=== PATIENT | female | born 1985 | race Caucasian/White ===

== ENCOUNTER 2016-11-19 21:41 | Inpatient (IN) | payer BC, OTHER ==
[~2016-11-19] VITALS: Ht 182.9 cm; Wt 72.6 kg
[~2016-11-19 21:41] MED LIST: OMEP20TA20 PO
[2016-11-19 22:30] VITALS: BP 130/83
--- NOTE | 2016-11-19 22:30 | NUR ---
Pre-assessment note: Pt is 30F seen in the intake office. Pt is alert and oriented with no s/s of acute distress noted. Pt reported feeling anxiety at this time. Explained to pt the policies and procedures of the unit. Pt verbalized understanding. Pt stated that she is here to be treated for ETOH dependence. BP 130/83, HR: 121, T: 98.0, RR:20, SpO2: 96%. Pt reports NKA. Pt reports weight of 160lbs and Height of 6'00". Pt is able to ambulate to unit with steady gait. Will admit to [facility] floor.
--- NOTE | 2016-11-19 22:38 | NUR ---
Admission note: Pt is a 30 year old female, AOx4 with no s/s of acute distress noted. Pt denies any pain/discomfort at this time. Respirations even and unlabored. Heart rate regular. Bowel sounds active x4 quadrants. Skin intact. Pt reported NKDA and NKFA. Pt following regular diet at home. Pt was previously in [facility] on May 2016. Pt brought no home medications. Pt reported hx of Anxiety, Depression, and Acute Pancreatitis. Pt has no hx of sz. Pt refused flu and pna vaccines. Pt refused to be tested for HIV. Pt denies having a PCP. Pt admitted for ETOH dependence: Pt drinks 2-3 bottles of wine daily for the past 6 months. Pt started drinking at 16 years old. Pt last drank on 11/19/16 at 1700. Pt will be under the care of Dr. Zachariah Morel. Pt reported no s/s of severe withdrawals except for slight anxiety. Initial CIWA assessment was 6. Pt verbalized she is in treatment because she doesn't want to be physically dependent on alcohol. Educated pt about current plan of care and verbalized support. Encouraged pt to verbalize feelings. Pt denies any suicidal ideation at this time. Pt denies hx of smoking cigarettes. Bed in lowest position. Side rails up x2. Bed padded for safety. All needs attended and met. Call light functioning and within reach. Will continue to monitor.
[2016-11-19 22:47] LABS: *URINE HCG, QUAL NEGATIVE (NEGATIVE)
[2016-11-19 22:56] LABS: *AMPHETAMINE, URINE NEGATIVE (NEGATIVE); *BARBITURATE, URINE NEGATIVE (NEGATIVE); *CANNABINOID, URINE NEGATIVE (NEGATIVE); *COCCAINE, URINE NEGATIVE (NEGATIVE); *OPIATE, URINE NEGATIVE (NEGATIVE); *PHENCYCLIDINE SCREEN,URINE NEGATIVE (NEGATIVE)
[2016-11-19] MEDS ORDERED: THIAMINE HCL 200 MG/2 ML VIAL IM ONE (23:15)
[2016-11-19] MEDS ORDERED: HYDROXYZINE PAMOATE 25 MG CAPSULE PO PRN (23:15)
[2016-11-19] MEDS ORDERED: DICYCLOMINE HCL 20 MG TABLET PO PRN (23:15)
[2016-11-19] MEDS ORDERED: LORAZEPAM 1 MG TABLET PO PRN (23:15)
[2016-11-19] MEDS ORDERED: ACETAMINOPHEN 325 MG TABLET PO PRN (23:15)
[2016-11-19] MEDS ORDERED: ONDANSETRON ODT 4 MG TAB.RAPDIS SL PRN (23:15)
[2016-11-19] MEDS ORDERED: MIRALAX 17 GM POWD.PACK PO PRN (23:15)
[2016-11-19] MEDS ORDERED: MAG HYDROX/AL HYDROX/SIMETH 30 ML LIQUID UDC PO PRN (23:15)
[2016-11-19] MEDS ORDERED: CLONIDINE HCL 0.1 MG TABLET PO PRN (23:15)
[2016-11-19] MEDS ORDERED: IBUPROFEN 400 MG TABLET PO PRN (23:15)
[2016-11-19] MEDS ORDERED: LORAZEPAM 2 MG/1 ML VIAL IM PRN (23:15)
[2016-11-19] MEDS ORDERED: MAGNESIUM HYDROXIDE 30 ML LIQUID UDC PO PRN (23:15)
[2016-11-19] MEDS ORDERED: ONDANSETRON 4 MG/2 ML VIAL IM PRN (23:15)
[2016-11-19] MEDS ORDERED: LOPERAMIDE HCL 2 MG CAPSULE PO PRN ×2 (23:15)
[2016-11-19] MEDS ORDERED: HYDROXYZINE PAMOATE 25 MG CAPSULE ONE (23:33)
[2016-11-19] MEDS ORDERED: LORAZEPAM 1 MG TABLET ONE (23:33)
[2016-11-19] MEDS: LORAZEPAM 1 MG TABLET PO PRN (23:40)
--- NOTE | 2016-11-19 23:40 | NUR ---
Ativan and Vistaril PRN: CIWA noted at 6. Pt c/o of withdrawal symptoms. 1mg Ativan PRN given as ordered. Pt also c/o of anxiety. Vistaril PRN given as ordered. Will continue to monitor.
[2016-11-20] VITALS: BP 124/81
[2016-11-20 00:20] LABS: BASOPHILS % (AUTO) 1.2 % (0.0-2.0); EOSINOPHILS # (AUTO) 0.2 K/uL (0.0-0.7); EOSINOPHILS % (AUTO) 4.8 % (0.0-7.0); HEMATOCRIT 39.1 % (37-47); HEMOGLOBIN 13.2 G/DL (12.0-16.0); LYMPHOCYTES # (AUTO) 2.1 K/UL (0.8-4.8); LYMPHOCYTES % (AUTO) 59.2 % (20.5-51.5); MEAN CORPUSCULAR HEMOGLOBIN 29.6 UUG (27.0-31.0); MEAN CORPUSCULAR HGB CONC 34 g/dL (32.0-37.0); MEAN CORPUSCULAR VOLUME 87.8 FL (81.0-99.0); MONOCYTES # (AUTO) 0.2 K/UL (0.1-1.30); MONOCYTES % (AUTO) 7.3 % (0.0-11.0); NEUTROPHILS # (AUTO) 0.9 K/UL (1.8-8.9); NEUTROPHILS % (AUTO) 27.5 % (38.5-71.5); PLATELET COUNT (AUTO) 199 K/UL (150-450); RED BLOOD CELL COUNT(AUTO) 4.45 MIL/UL (4.2-5.4); WHITE BLOOD COUNT (AUTO) 3.4 K/UL (4.0-11.2)
--- NOTE | 2016-11-20 00:30 | NUR ---
Ativan and Vistaril reassessment: Pt asleep. No acute distress noted. Ativan and Vistaril effective.
[2016-11-20 00:34] LABS: BILIRUBIN,TOTAL 0.4 mg/dL (0.2-1.0); CREATININE 0.9 mg/dL (0.6-1.3); POTASSIUM 3.9 mmol/L (3.5-5.1); TOTAL PROTEIN, SERUM 7.7 g/dL (6.4-8.2)
[2016-11-20 00:58] LABS: THYROID STIMULATING HORMONE 2.046 mIU/mL (0.358-3.740)
[2016-11-20 04:00] VITALS: BP 107/57
--- NOTE | 2016-11-20 07:20 | NUR ---
End of Shift Notes: Pt is 30F, admitted for ETOH dependence on 11/20/16. Pt is full code, on regular diet, and on fall/seizure precautions. Pt noted with NKA. Pt is currently on PRN Ativan for withdrawal symptoms. Pt slept for 6 hours. Respirations even and unlabored. Pt's last CIWA was 2. No N/V noted during the shift. Fall and Sz precautions observed. Bed in lowest position. Side rails up x2. Call light functioning and within reach. All needs attended and met. Will endorse to day shift nurse.
--- NOTE | 2016-11-20 07:49 | NUR ---
START OF SHIFT NOTE Received patient this morning Aox4. Patient states she does not feel good, she states she is "shakey and sweaty." No taper ordered yet. Last CIWA 2 per night nurse. PRN Ativan and Vistaril given per hourly shift and patient slept 6 hours. Encouraged patient to increase fluid intake. Encouraged patient to rest during shift and notify RN if S/S of W/D worsen.. Will provide safe and supportive environment. Will monitor closely and offer help as needed. All needs currently met.
[2016-11-20 08:00] VITALS: BP 109/69
[2016-11-20] MEDS: MULTIVITAMINS,THERAPEUTIC TABLET PO SCH (08:38)
[2016-11-20] MEDS: THIAMINE HCL 100 MG TABLET PO SCH (08:38)
[2016-11-20] MEDS: LORAZEPAM 1 MG TABLET PO PRN (08:39)
[2016-11-20] MEDS: FOLIC ACID 1 MG TABLET PO SCH (08:39)
--- NOTE | 2016-11-20 08:40 | NUR ---
PRN MEDICATION 1 MG ATIVAN GIVEN FOR CIWA 9. CLONIDINE GIVEN FOR C/O ANXIETY AND SWEATS. WILL REASSESS.
[2016-11-20] MEDS ORDERED: TUBERCULIN,PURIF.PROT.DERIV. 5 TU/0.1 ML TEST ID ONE (09:00)
--- NOTE | 2016-11-20 09:25 | NUR ---
PRN REASSESSMENT CIWA DECREASED TO 5. PATIENT REPORTS DECREASE IN ANXIETY. WILL MONITOR
[2016-11-20 12:00] VITALS: BP 110/70
[2016-11-20] MEDS: LORAZEPAM 1 MG TABLET PO SCH ×3 (12:09→21:04)
[2016-11-20 16:00] VITALS: BP 109/72
--- NOTE | 2016-11-20 18:29 | NUR ---
END OF SHIFT NOTE Patient started on 5 day Ativan taper during shift and tolerating well. PRN Ativan and Clonidine given this morning with effectiveness. Last CIWA 6. Patient did not attend groups or activities. She isolated self in room most of shift and slept. Patient had uneventful shift. TB test administered. Vital signs stable. All needs have been met. Safety measures in place. Will endorse to night nurse
--- NOTE | 2016-11-20 19:30 | NUR ---
START OF SHIFT Pt is 30 y/o female , admitted for ETOH dependence . Pt is full code, on regular diet, and on fall/seizure precautions. Pt noted with NKA.Pt started on 5 day Ativan taper for withdrawal symptoms,tolerating well. Respirations even and unlabored. Pt's last CIWA was 6.Placed on Fall and Sz precautions.Received in stable condition. All needs have been met. All safety measures in place per hospital policy. Bed locked and in lowest position, side rails up x2 and padded, call light within reach. Will continue to monitor. .
[2016-11-20 20:00] VITALS: BP 102/70
[2016-11-20] MEDS: FAMOTIDINE 20 MG TABLET PO SCH (21:04)
[2016-11-20] MEDS: GABAPENTIN 300 MG CAPSULE PO SCH (21:04)
[2016-11-20] MEDS ORDERED: GABAPENTIN 300 MG CAPSULE ONE (21:14)
[2016-11-20] MEDS ORDERED: FAMOTIDINE 20 MG TABLET ONE (21:15)
[2016-11-21] VITALS: BP 127/81
[2016-11-21 04:00] VITALS: BP 105/70
[2016-11-21] MEDS: PANTOPRAZOLE SODIUM 40 MG TABLET.DR PO SCH (06:22)
--- NOTE | 2016-11-21 06:49 | NUR ---
END OF SHIFT Pt is 30 y/o female , admitted for ETOH dependence . Pt is full code, on regular diet, and on fall/seizure precautions. Pt noted with NKA.Pt started on 5 day Ativan taper for withdrawal symptoms,tolerating well. Respirations even and unlabored. Pt's last CIWA was 2.Placed on Fall and Sz precautions.No PRN meds given ,no c/o pain noted.Pt slept 10 hrs,fluid intake was 1091 mls,voided x 2. All needs have been met. All safety measures in place per hospital policy. Bed locked and in lowest position, side rails up x2 and padded, call light within reach. Will continue to monitor.
[2016-11-21 07:07] LABS: HEPATITIS B SURFACE AG Negative (Negative)
--- NOTE | 2016-11-21 07:10 | NUR ---
Start of Shift Notes: Received patient in her room. Awake, alert and verbally responsive. Able to make needs known. Oriented x 4. Respirations even and unlabored. NO SOB noted. Skin warm and moist to touch. Appears with mild anxiety and facial flushing. Abdomen soft and non-distended with (+) BS in all 4 quadrants. No complains of N/V/D or constipation noted. Bladder non-distended. No complains of dysuria. Ambulatory ad bob with steady gait. Patient is a 30 year old female admitted for ETOH dependence who was placed on a 5-day Ativan taper as ordered. No adverse reactions noted. Has past medical hx of anxiety, depression and acute pancreatitis. Prior to admission, patient was using 2-3 bottles of wine daily x 6 months. Educated patient on her current plan of care for the day and her medication regimen. Encouraged oral fluid intake and encouraged group participation to learn new skills to prevent relapse. Will continue to monitor closely. Slept for 10 hours.
[2016-11-21 08:00] VITALS: BP 113/69
[2016-11-21] MEDS: LORAZEPAM 1 MG TABLET PO SCH ×3 (08:36→20:44)
[2016-11-21] MEDS: GABAPENTIN 300 MG CAPSULE PO SCH ×3 (08:36→20:43)
[2016-11-21] MEDS: THIAMINE HCL 100 MG TABLET PO SCH (08:37)
[2016-11-21] MEDS: FOLIC ACID 1 MG TABLET PO SCH (08:37)
[2016-11-21] MEDS: FAMOTIDINE 20 MG TABLET PO SCH ×2 (08:37→20:44)
[2016-11-21] MEDS: MULTIVITAMINS,THERAPEUTIC TABLET PO SCH (08:37)
[2016-11-21 12:00] VITALS: BP 117/86
--- NOTE | 2016-11-21 14:42 | NUR ---
Ativan 1 mg PO held: Ativan 1 mg PO held due to patient appears over sedated. CIWA 2. VS stable. Per patient, it might be too much for her to take. Notified Dr. Morel. Per MD, ok to hold at this time and monitor the patient.
[2016-11-21 16:00] VITALS: BP 116/83
--- NOTE | 2016-11-21 19:04 | NUR ---
End of Shift Notes: Patient continues to be on 5-day Ativan taper as ordered. No adverse reactions noted. No delayed reactions noted. VS monitored closely q 4 hours. Withdrawal symptoms were closely monitored. Patient presented with initial CIWA 6, patient presented with anxiety, facial flushing, agitation, and fine tremors and facial flushing. Denies S/I or H/I noted. Last CIWA 2. Compliant with care and treatment. Ativan 1 mg at 1500 held due to sedation per MD. Able to participate in group and therapy sessions despite her withdrawal symptoms. Compliant with care and treatment. All needs met and attended. [facility] ontinue to monitor closely.
--- NOTE | 2016-11-21 19:30 | NUR ---
START OF SHIFT Pt is 30 y/o female , admitted for ETOH dependence . Pt is full code, on regular diet, and on fall/seizure precautions. Pt noted with NKA.Pt started on 5 day Ativan taper for withdrawal symptoms.Noon dose was held due to sedation.Pt is in stable condition at this time.Respirations even and unlabored. Pt's last CIWA was 2.Placed on Fall and Sz precautions.All needs have been met. All safety measures in place per hospital policy. Bed locked and in lowest position, side rails up x2 and padded, call light within reach. Will continue to monitor.
[2016-11-21 20:00] VITALS: BP 112/78
[2016-11-22] VITALS: BP 115/84
[2016-11-22 04:00] VITALS: BP 102/68
[2016-11-22] MEDS: PANTOPRAZOLE SODIUM 40 MG TABLET.DR PO SCH (06:18)
--- NOTE | 2016-11-22 06:51 | NUR ---
END OF SHIFT Pt is 30 y/o female , admitted for ETOH dependence . Pt is full code, on regular diet, and on fall/seizure precautions. Pt noted with NKA.Pt started on 5 day Ativan taper for withdrawal symptoms,tolerating well. Respirations even and unlabored. Pt's last CIWA was 2.Placed on Fall and Sz precautions.Pt slept 6 hrs,fluid intake was 1000 mls,voided x 2,no BM.nO prn MEDS GIBVEN All needs have been met. All safety measures in place per hospital policy. Bed locked and in lowest position, side rails up x2 and padded, call light within reach,will continue to monitor.
--- NOTE | 2016-11-22 07:28 | NUR ---
START OF SHIFT NOTE: Received report from material handler 1st shift nurse. Patient is a 30 year old female admitted 11-19-16 for ETOH dependence who was placed on a 5-day Ativan taper as ordered. Tolerating well. Pt is alert and oriented X4. Color good, skin warm and dry. Respirations even and unlabored. Resting in bed at this time. Safety precautions observed. Call light within reach. Will continue to monitor.
[2016-11-22 08:24] VITALS: BP 96/60
--- NOTE | 2016-11-22 09:00 | NUR ---
VSS CIWA 1 TB test read LFA negative 0mm
[2016-11-22] MEDS: FOLIC ACID 1 MG TABLET PO SCH (09:14)
[2016-11-22] MEDS: THIAMINE HCL 100 MG TABLET PO SCH (09:14)
[2016-11-22] MEDS: LORAZEPAM 1 MG TABLET PO SCH ×4 (09:14→21:00)
[2016-11-22] MEDS: MULTIVITAMINS,THERAPEUTIC TABLET PO SCH (09:14)
[2016-11-22] MEDS: FAMOTIDINE 20 MG TABLET PO SCH ×2 (09:14→21:40)
[2016-11-22] MEDS: GABAPENTIN 300 MG CAPSULE PO SCH ×3 (09:14→21:40)
--- NOTE | 2016-11-22 10:53 | NUR ---
Therapist prompted client about group times. Client stated she will go to all groups today.
[2016-11-22 12:00] VITALS: BP 107/70
--- NOTE | 2016-11-22 14:00 | NUR ---
Pt c/o "indigestion" Mylanta 30cc po prn given
--- NOTE | 2016-11-22 15:04 | NUR ---
Pt states feels improved after Mylanta prn
[2016-11-22 16:30] VITALS: BP 104/73
--- NOTE | 2016-11-22 18:47 | NUR ---
END OF SHIFT NOTE: Report given to electrical engineering technician nurse. Patient is a 30 year old female admitted 11-19-16 for ETOH dependence who was placed on a 5-day Ativan taper as ordered. Tolerating well. Pt is alert and oriented X4. Color good, skin warm and dry. Respirations even and unlabored. Vital signs have remained stable throughout shift. Last CIWA 1 @ 1700. Pt received Mylanta 30cc po prn @ 1400. Resting in bed at this time. Safety precautions observed. Call light within reach.
[2016-11-22 20:00] VITALS: BP 115/85
--- NOTE | 2016-11-22 21:00 | NUR ---
Ativan Refused: Patient refuses 21:00 scheduled dose of Ativan taper. Patient states that she does not life the way it makes her feel. Patient states, "I've been out of it for two days, and I don't like it." Patient educated on risks/benefits but still refused. Will continue to monitor.
[2016-11-22] MEDS: diphenhydrAMINE 50 MG CAPSULE PO PRN (21:40)
--- NOTE | 2016-11-22 21:40 | NUR ---
PRN BENADRYL: PATIENT COMPLAINS OF INABILITY TO SLEEP. ADMINISTERED PRN BENADRYL ORDERED. WILL CONTINUE TO MONITOR.
--- NOTE | 2016-11-22 22:40 | NUR ---
PRN REASSESSMENT: PATIENT IS IN BED WITH EYES CLOSED. RESPIRATIONS ARE EVEN AND UNLABORED. NO S/S OF ACUTE DISTRESS NOTED. PRN BENADRYL EFFECTIVE AEB PATIENT'S ABILITY TO REST. WILL CONTINUE TO MONITOR.
[2016-11-23] VITALS: BP 106/68
--- NOTE | 2016-11-23 | NUR ---
CIWA DEFERRED: CIWA IS DEFERRED FOR SLEEP. V/S STABLE. ALL SAFETY PRECAUTIONS ARE IN PLACE. WILL CONTINUE TO MONITOR. Addendum: 11/23/16 at 0125 by MARBELLA BOND RN Amended: Links added.
[2016-11-23 04:00] VITALS: BP 103/58
--- NOTE | 2016-11-23 04:00 | NUR ---
CIWA Deferred: CIWA is deferred for sleep. V/S stable. All safety precautions are in place. Will continue to monitor. Addendum: 11/23/16 at 0438 by MARBELLA BOND RN Amended: Links added.
[2016-11-23] MEDS: PANTOPRAZOLE SODIUM 40 MG TABLET.DR PO SCH (06:07)
--- NOTE | 2016-11-23 07:08 | NUR ---
Start of Shift Endorsement received from nightshift nurse. PT is a 30 y/o female admitted for alcohol dependence. Pt has been placed on a 5 day Ativan taper. Pt is tolerating the taper well at this time AEB CIWA 1 at midnight. Pt refused scheduled Ativan order. Pt received PRN Benadryl during nightshift. Pt reports sleeping 6 hours. VS WNL. Full Code. PT is alert and oriented x4. Pt is in STABLE condition at this time. Remains compliant with medication and diet regimen. All needs have been met, All safety measures in place per hospital policy. Bed in lowest position, side rails up x2, call-light within reach. Will continue to monitor
--- NOTE | 2016-11-23 07:37 | NUR ---
Start of Shift Note: Report received from day shift nurse. Pt is a 30 Y/O female admitted on 11/19/2016 for medically-supervised withdrawal from ETOH. Pt reports drinking 2-3 bottles of wine daily for six months. Pt is on a 5-day Ativan taper. Pt received with last CIWA=1, and PRN Mylanta was given during day shift. Pt is a full code, reports NKA, and on a regular diet,. Pt reports PMHx: anxiety, depression, and hx of acute pancreatitis. Pt received in room and reports anxiety. Bed is in low position and locked, side rails up x2, call light within reach. Will continue to monitor. Addendum: 11/23/16 at 0738 by MARBELLA BOND RN Wrong time entered: Correct time is 20:00 on 11/22/16
--- NOTE | 2016-11-23 07:38 | NUR ---
End of Shift Note: Pt is a 30 Y/O female admitted to [facility] on 11/19/2016 for medically-supervised withdrawal from ETOH. Pt reports a PMHx of anxiety, depression, and hx of acute pancreatitis. Pt is a full code. Pt reports NKA. Pt is on a regular diet. Pt reported drinking 2-3 bottles of wine daily for six months, and was placed on a 5-day Ativan taper. Scheduled medication regime effectively managed s/s of withdrawal this shift. Last CIWA=1 at 20:00. V/S stable throughout shift. Total fluid intake this shift: 2592 ml; output: urine x 3 and BM x 2. PRN Benadryl was given for inability to sleep, which was effective and pt slept 6 hours this shift. Pt is currently in bed, all needs have been attended and met. Pt endorsed to day shift nurse.
[2016-11-23 08:00] VITALS: BP 95/58
[2016-11-23] MEDS: THIAMINE HCL 100 MG TABLET PO SCH (08:33)
[2016-11-23] MEDS: FAMOTIDINE 20 MG TABLET PO SCH ×2 (08:33→21:15)
[2016-11-23] MEDS: MULTIVITAMINS,THERAPEUTIC TABLET PO SCH (08:33)
[2016-11-23] MEDS: GABAPENTIN 300 MG CAPSULE PO SCH ×3 (08:34→21:15)
[2016-11-23] MEDS: FOLIC ACID 1 MG TABLET PO SCH (08:34)
[2016-11-23] MEDS: LORAZEPAM 1 MG TABLET PO SCH ×2 (08:35→15:00)
[2016-11-23 12:00] VITALS: BP 119/80
[2016-11-23] MEDS ORDERED: GABA-534 PO ×3 (14:26→15:04)
[2016-11-23] MEDS ORDERED: HYDR-3895 PO ×3 (14:26→15:04)
[2016-11-23 16:00] VITALS: BP 108/75
[2016-11-23 16:03] LABS: *AMPHETAMINE, URINE NEGATIVE (NEGATIVE); *BARBITURATE, URINE NEGATIVE (NEGATIVE); *CANNABINOID, URINE NEGATIVE (NEGATIVE); *COCCAINE, URINE NEGATIVE (NEGATIVE); *OPIATE, URINE NEGATIVE (NEGATIVE); *PHENCYCLIDINE SCREEN,URINE NEGATIVE (NEGATIVE)
--- NOTE | 2016-11-23 16:42 | NUR ---
Therapist prompted client about group times. Client stated she did not want to go because she has been "busy writing/journaling."
--- NOTE | 2016-11-23 18:57 | NUR ---
End of Shift Endorsement given to nightshift nurse. PT is a 30 y/o female admitted for alcohol dependence. Pt has been placed on a 5 day Ativan taper. Pt is tolerating the taper well at this time AEB CIWA 1 at 1600. Pt refused scheduled Ativan order. The Ativan taper has been discontinued per Dr. Morel. Pt has been scheduled to be discharged on 11/24/16. All discharge paperwork has been completed, urine has been collected for UDS. All discharge education has been completed. Intake: 4000ml, Void x5, BM x2. Pt has participated in groups and activities. VS WNL. Full Code. PT is alert and oriented x4. Pt is in STABLE condition at this time. Remains compliant with medication and diet regimen. All needs have been met, All safety measures in place per hospital policy. Bed in lowest position, side rails up x2, call-light within reach. Will continue to monitor
[2016-11-23 20:00] VITALS: BP 117/82
--- NOTE | 2016-11-23 20:00 | NUR ---
Start of Shift Note: Report received from day shift nurse. Pt is a 30 yo female admitted on 11/19/2016 for medically-supervised withdrawal from ETOH. Pt reported drinking 1500-2250ml wine daily for six months. Pt has completed an Ativan taper and is to discharge tomorrow; UDS collected, endorsement to print results and PPD in prep for discharge. Pt received with last CIWA=1, and no PRN medications were given during day shift. Pt is a full code, is on a regular diet, and reports NKA. PMHx: anxiety, depression, and hx of acute pancreatitis. Pt received in room and reports anxiety. Bed is in low position and locked, side rails up x2, call light within reach. Will continue to monitor.
[2016-11-23] MEDS: diphenhydrAMINE 50 MG CAPSULE PO PRN (21:15)
--- NOTE | 2016-11-23 21:15 | NUR ---
PRN Benadryl: Patient complains of inability to sleep. Administered PRN Benadryl as ordered. Will continue to monitor.
--- NOTE | 2016-11-24 | NUR ---
Vitals Refused, CIWA Deferred: Patient refuses 00:00 ordered V/S. CIWA is deferred for sleep. All safety precautions are in place. Will continue to monitor. Addendum: 11/24/16 at 0112 by MARBELLA BOND RN Amended: Links added.
--- NOTE | 2016-11-24 04:00 | NUR ---
Vitals Refused, CIWA Deferred: Patient refuses 04:00 V/S assessment. CIWA is deferred for sleep. No s/s of acute distress noted. All safety precautions are in place. Will continue to monitor. Addendum: 11/24/16 at 0551 by MARBELLA BOND RN Amended: Links added.
[2016-11-24] MEDS: PANTOPRAZOLE SODIUM 40 MG TABLET.DR PO SCH (06:42)
--- NOTE | 2016-11-24 07:08 | NUR ---
End of Shift Note: Pt is a 30 yo female admitted to [facility] on 11/19/2016 for medically-supervised withdrawal from ETOH. Pt reported a PMHx of anxiety, depression, and hx of acute pancreatitis. Pt is a full code. Pt is on a regular diet. Pt reports NKA. Pt reported drinking 1500-2250ml wine daily for six months. Pt has completed an Ativan taper and is to discharge today. Scheduled medication regime effectively managed s/s of withdrawal this shift. Last CIWA=1 at 20:00. V/S stable throughout shift. Total fluid intake this shift: 1855 ml; output: urine x 3 and BM x 0. PRN Benadryl was given for insomnia, which was effective and pt slept 8 hours this shift. Pt is currently in bed, all needs have been attended and met. Pt endorsed to day shift nurse.
--- NOTE | 2016-11-24 07:09 | NUR ---
Start of Shift Notes: Received patient in her room. Awake, alert and verbally responsive. Able to make needs known. Oriented x 4. Respirations even and unlabored. NO SOB noted. Skin warm and moist to touch. Appears with mild anxiety and facial flushing. Abdomen soft and non-distended with (+) BS in all 4 quadrants. No complains of N/V/D or constipation noted. Bladder non-distended. No complains of dysuria. Ambulatory ad bob with steady gait. Patient is a 30 year old female admitted for ETOH dependence who was placed on a shortened Ativan taper as ordered. No adverse reactions noted. Has past medical hx of anxiety, depression and acute pancreatitis. Prior to admission, patient was using 2-3 bottles of wine daily x 6 months. Patient completed taper and will be discharging today. Educated patient on the discharge process and her medication regimen.Patient verbalized good understanding. Will continue to monitor closely.
[2016-11-24 08:00] VITALS: BP 99/63
[2016-11-24] MEDS: GABAPENTIN 300 MG CAPSULE PO SCH (08:45)
[2016-11-24] MEDS: FAMOTIDINE 20 MG TABLET PO SCH (08:45)
[2016-11-24] MEDS: MULTIVITAMINS,THERAPEUTIC TABLET PO SCH (08:45)
[2016-11-24] MEDS: FOLIC ACID 1 MG TABLET PO SCH (08:45)
[2016-11-24] MEDS: THIAMINE HCL 100 MG TABLET PO SCH (08:46)
--- NOTE | 2016-11-24 08:50 | NUR ---
Discharge Instructions: Educated patient on her discharge instructions. Discharge instructions were provided to the patient and verbalized good understanding of all teachings. All necessary discharge paperwork were shown to the patient. Included in the discharge packet was patient's TB test, UDS and discharge instructions. ROBERTWA 0. Will continue to monitor closely.
[2016-11-24] MEDS ORDERED: LORAZEPAM 1 MG TABLET PO SCH (09:00)
--- NOTE | 2016-11-24 09:04 | NUR ---
Motrin 400 mg PO given: Patient complained of 5/10 muscle cramps. Medicated patient with Motrin 400 mg PO as ordered. Will monitor for effectiveness.
--- NOTE | 2016-11-24 10:04 | NUR ---
Re-assessment: Per patient, PRN Motrin was effective in reducing patient's menstrual cramps.
--- NOTE | 2016-11-24 10:15 | NUR ---
Discharged: Patient left the unit at this time with all her clothings, valuables and necessary discharge paperwork. Escorted off the unit by trim machine operator and picked up by her father to be discharge home. CIWA 0. VS stable.
== END 2016-11-24 10:15 | disposition home or self-care (01) | DRG 895 ==
LOC: SRC 21:41
PROVIDERS: ADMIT Internal Medicine; ATTEND Internal Medicine
PROC: HZ2ZZZZ Detoxification Services for Substance Abuse Treatment (ICD-10-PCS; principal; 2016-11-19)
PROC: HZ41ZZZ Group Counseling for Substance Abuse Treatment, Behavioral (ICD-10-PCS; 2016-11-21)
DX: F10.239 Alcohol dependence with withdrawal, unspecified (principal); Y90.9 Presence of alcohol in blood, level not specified; K21.9 Gastro-esophageal reflux disease without esophagitis; Z81.1 Family history of alcohol abuse and dependence
CPT/HCPCS: 36415; 70030-TC; 80307; 83690; 83735; 84443; 84703; 85025; 86580; 86592; 86705; 86803; 87340; G0480; J3411; Q0163

== ENCOUNTER 2017-02-06 22:25 | Inpatient (IN) | payer BC, OTHER ==
[~2017-02-06] VITALS: Ht 177.8 cm; Wt 68.0 kg
[~2017-02-06 22:25] MED LIST changes: +GABA-534 PO; +HYDR-3895 PO
[2017-02-06 23:30] LABS: BASOPHILS # (AUTO) 0.1 K/uL (0.0-8.0); BASOPHILS % (AUTO) 1.9 % (0.0-2.0); EOSINOPHILS # (AUTO) 0.2 K/uL (0.0-0.7); EOSINOPHILS % (AUTO) 4.1 % (0.0-7.0); HEMATOCRIT 41.5 % (37-47); HEMOGLOBIN 13.5 G/DL (12.0-16.0); LYMPHOCYTES % (AUTO) 61.4 % (20.5-51.5); MEAN CORPUSCULAR HGB CONC 33 g/dL (32.0-37.0); MEAN CORPUSCULAR VOLUME 92.3 FL (81.0-99.0); MONOCYTES # (AUTO) 0.3 K/UL (0.1-1.30); MONOCYTES % (AUTO) 6.4 % (0.0-11.0); NEUTROPHILS # (AUTO) 1.3 K/UL (1.8-8.9); NEUTROPHILS % (AUTO) 26.2 % (38.5-71.5); PLATELET COUNT (AUTO) 261 K/UL (150-450); WHITE BLOOD COUNT (AUTO) 4.9 K/UL (4.0-11.2)
[2017-02-06 23:31] LABS: *URINE HCG, QUAL NEGATIVE (NEGATIVE)
[2017-02-06 23:37] LABS: BILIRUBIN,TOTAL 0.2 mg/dL (0.2-1.0); CREATININE 0.8 mg/dL (0.6-1.3); MAGNESIUM 1.8 mg/dL (1.8-2.4); TOTAL PROTEIN, SERUM 7.7 g/dL (6.4-8.2)
[2017-02-06 23:41] LABS: *AMPHETAMINE, URINE NEGATIVE (NEGATIVE); *BARBITURATE, URINE NEGATIVE (NEGATIVE); *CANNABINOID, URINE NEGATIVE (NEGATIVE); *COCCAINE, URINE NEGATIVE (NEGATIVE); *OPIATE, URINE NEGATIVE (NEGATIVE); *PHENCYCLIDINE SCREEN,URINE NEGATIVE (NEGATIVE)
[2017-02-07] VITALS: BP 130/85
[2017-02-07] MEDS ORDERED: RANI150T12 PO (00:30)
[2017-02-07] MEDS ORDERED: GABA-534 PO (00:30)
[2017-02-07] MEDS ORDERED: OMEP20TA20 PO (00:30)
[2017-02-07 04:00] VITALS: BP 110/74
[2017-02-07 08:00] VITALS: BP 114/83
[2017-02-07 12:00] VITALS: BP 126/67
[2017-02-07 16:00] VITALS: BP 122/92
[2017-02-07 20:00] VITALS: BP 126/66
[2017-02-08] VITALS: BP 118/81
[2017-02-08 04:00] VITALS: BP 130/83
[2017-02-08 06:09] LABS: HEPATITIS B SURFACE AG Negative (Negative)
[2017-02-08 08:00] VITALS: BP 117/73
[2017-02-08 12:30] VITALS: BP 143/97
[2017-02-08 16:55] VITALS: BP 120/79
[2017-02-08] MEDS ORDERED: ESCI10TA PO (17:44)
[2017-02-08] MEDS ORDERED: GABA-534 PO (17:44)
[2017-02-08] MEDS ORDERED: DIPH50CA37 PO (17:44)
[2017-02-08] MEDS ORDERED: IBUP-1953 PO (17:44)
[2017-02-08 20:00] VITALS: BP 111/71
[2017-02-09] VITALS: BP 115/71
[2017-02-09 08:00] VITALS: BP 115/67
== END 2017-02-09 10:34 | disposition other institution (70) | DRG 895 ==
LOC: SRC 22:25
PROVIDERS: ADMIT Internal Medicine; ATTEND Internal Medicine
PROC: HZ2ZZZZ Detoxification Services for Substance Abuse Treatment (ICD-10-PCS; principal; 2017-02-06)
PROC: HZ41ZZZ Group Counseling for Substance Abuse Treatment, Behavioral (ICD-10-PCS; 2017-02-08)
PROC: HZ31ZZZ Individual Counseling for Substance Abuse Treatment, Behavioral (ICD-10-PCS; 2017-02-08)
DX: F10.230 Alcohol dependence with withdrawal, uncomplicated (principal); K21.9 Gastro-esophageal reflux disease without esophagitis; Y90.9 Presence of alcohol in blood, level not specified; Z81.1 Family history of alcohol abuse and dependence
CPT/HCPCS: 36415; 70030-TC; 80307; 83735; 84703; 85025; 86592; 86705; 86803; 87340; 87806; G0480; J3411; Q0162; Q0163